=== PATIENT | male | born 1960 | race Caucasian/White ===

== ENCOUNTER 2023-05-30 09:23 | Inpatient (IN) | payer OTHER ==
[2023-05-30 10:13] LABS: Absolute Neutrophil Ct (ANC) 12.31 x10^3/uL (1.4-6.9); BASOPHIL % 0.1 % (0.0-0.4); Basophil (Absolute #) 0.02 x10^3/uL (0-0.4); Eosinophil (Absolute #) 0 x10^3/uL (0-0.5); Hematocrit 36.8 % (42-50); Hemoglobin 12.6 g/dL (12.5-18.0); IMMATURE GRAN # 0.06 x10^3u/L (0.00-0.03); IMMATURE GRAN % 0.4 % (0.00-0.4); Lymphocyte (Absolute #) 0.39 x10^3/uL (1.0-4.6); Lymphocytes % 2.8 % (24.0-44.0); Mean Cell Volume 90.9 fL (78-100); Mean Corpuscular Hemoglobin 31.1 pg (26-32); Mean Corpuscular Hgb Concent. 34.2 g/dL (32-36); Mean Platelet Volume 9.7 fL (7.5-11.0); Monocyte (Absolute #) 0.98 x10^3/uL (0.0-1.3); Monocytes % 7.1 % (0.0-12.0); Neutrophil % 89.6 % (36.0-66.0); Platelet Count 159 x10^3/uL (150-450); Red Blood Count 4.05 x10^6/uL (4.1-5.6); Red Cell Distribution Width 13.9 % (11.5-14.0); White Blood Count 13.8 x10^3/uL (4.0-10.5)
--- NOTE | 2023-05-30 10:18 | ERPHSYRPT ---
- History of Present Illness Time Seen by Provider: 05/30/23 09:41 Source: patient Exam Limitations: no limitations Patient Subjective Stated Complaint: Caregiver states "He was his normal self on but he has been getting worse since. Today he was confused and had a high fever." Triage Nursing Assessment: PT presented alert adn oriented X 4. pt has iv in right forearm. Pt is a quadraplegic. Pt able to speak in clear full sentences. Physician History: Patient here with sepsis criteria. Fever, tachycardia, source of infection likely UTI. Patient has not been himself over the past few days. Has had a f ever for the past 3 days. Temperature was 101 in the ambulance. He has no falls or trauma. Patient is a paraplegic but does have at home care. Initially patient had some altered mental status per the manager night. However he has not received 1 L of fluid in the ambulance. And looks much improved. Allergies/Adverse Reactions: No Known Drug Allergies Allergy (Verified 05/30/23 09:34) Home Medications: Baclofen 20 mg PO TID 05/30/23 [History] Bisacodyl 10 mg [Dulcolax 10 MG SUPP] 10 mg RC DAILY 05/30/23 [History] Cholecalciferol (Vitamin D3) [Vitamin D] 2,000 unit PO DAILY 05/30/23 [History] Docusate Sodium 100 mg [Docusate Sodium 100 MG] 100 mg PO TID 05/30/23 [History] Duloxetine HCl [Cymbalta] 60 mg PO DAILY 05/30/23 [History] Famotidine 20 mg PO DAILY 05/30/23 [History] Gabapentin 400 mg PO TID 05/30/23 [History] Methenamine Hippurate [Hiprex] 1 gm PO BID 05/30/23 [History] Midodrine HCl 5 mg PO TID PRN 05/30/23 [History] Oxybutynin Chloride [Oxybutynin Chloride ER] 10 mg PO DAILY 05/30/23 [History] Polyethylene Glycol [Polyox Wsr-301] 1 gm MC DAILY PRN 05/30/23 [History] Senna 8.6 mg [Senokot 8.6 mg] 8.6 mg PO DAILY 05/30/23 [History] Trazodone HCl 50 mg [Desyrel 50 mg] 50 mg PO CLARIFY 05/30/23 [History] Hx Tetanus, Diphtheria Vaccination/Date Given: Yes Hx Influenza Vaccination/Date Given: Yes Hx Pneumococcal Vaccination/Date Given: Yes Immunizations Up to Date: Yes Travel Risk - International Travel Have you traveled outside of the country in past 3 weeks: No - Emerging Infectious Disease Are you exhibiting symptoms associated with any current EIDs: Yes Symptoms: Fever - Review of Systems All Other Systems: Unable due to condition (Altered mental status) - Past Medical History Pertinent Past Medical History: Yes Neurological History: No Pertinent History ENT History: No Pertinent History Cardiac History: No Pertinent History Respiratory History: No Pertinent History Endocrine Medical History: No Pertinent History Musculoskeletal History: No Pertinent History GI Medical History: No Pertinent History History: No Pertinent History Psycho-Social History: No Pertinent History Other Medical History: paraplegic - Past Surgical History Past Surgical History: Yes Other Surgical History: spine - Social History Smoking Status: Current every day smoker How long have you smoked: years Exposure to second hand smoke: Yes Drug Use: none - Nursing Vital Signs Nursing Vital Signs: Initial Vital Signs Temperature 101.7 F 05/30/23 09:24 Pulse Rate 119 H 05/30/23 09:24 Respiratory Rate 22 05/30/23 09:24 Blood Pressure 108/73 05/30/23 09:24 O2 Sat by Pulse Oximetry 92 L 05/30/23 09:24 Pain Scale Pain Intensity 0 - Physical Exam SpO2 Interpretation: normal SpO2: 92 Comments: 05/30/23 10:17 Physical Exam Vitals signs and nursing note reviewed. Constitutional: Appearance: Appears unwell, febrile, tachycardic HENT: Head: Normocephalic and atraumatic. Eyes: Conjunctiva/sclera: Conjunctivae normal. Neck: Trachea: No tracheal deviation. Cardiovascular: Rate and Rhythm: Tachycardia, hypotension Pulmonary: Effort: Pulmonary effort is normal. No respiratory distress. Abdominal: Palpations: Abdomen is soft. Musculoskeletal: General: No deformity. Skin: General: Skin is warm and dry. Neurological: Mental Status: Patient is alert, speaking full sentences. Patient is a paraplegic, neuroexam in line with this - Course Nursing assessment & vital signs reviewed: Yes EKG Interpreted by Me: Sinus Rhythm (Sinus rhythm, rate of 114, VT interval 162, QRS 85, QTc is 414) Ordered Tests: Active Orders 24 hr Category Date Time Status Admit as Inpatient ROUTINE Care 05/30/23 11:15 Active Call Admit Doctor for Orders ON ADMISSION Care 05/30/23 11:15 Active Code Status Order ROUTINE Care 05/30/23 11:15 Active IV Insertion STAT Care 05/30/23 09:37 Active cath [Cath for Specimen-Straight] STAT Care 05/30/23 09:39 Active House Regular Diet Diet 05/31/23 Breakfast Active CHEST 1 VIEW (PORTABLE) Stat Exams 05/30/23 09:41 Completed BLOOD CULTURE Stat Lab 05/30/23 09:59 Received BLOOD CULTURE Stat Lab 05/30/23 10:05 Received CBC W DIFF Stat Lab 05/30/23 09:40 Completed CMP Stat Lab 05/30/23 09:40 Completed CULTURE,URINE Stat Lab 05/30/23 09:52 Received Lactic Acid Stat Lab 05/30/23 09:55 Completed PROCALCITONIN Stat Lab 05/30/23 09:40 Completed PROTIME WITH INR Stat Lab 05/30/23 09:59 Completed TROPONIN Q4H Lab 05/30/23 09:59 Completed TROPONIN Q4H Lab 05/30/23 13:45 Ordered TROPONIN Q4H Lab 05/30/23 17:45 Ordered TROPONIN Q4H Lab 05/30/23 21:45 Ordered UA W/RFX UR CULTURE Stat Lab 05/30/23 09:52 Completed Pulse Oximetry CONTINUOUS RT 05/30/23 11:16 Active Respiratory Therapy Consult ONCE RT 05/30/23 11:15 Active Medication Summary Generic Name Dose Route Start Last Admin Trade Name Freq PRN Reason Stop Dose Admin Vancomycin HCl 2 gm in 400 mls @ 133.333 mls/hr 05/30/23 09:54 05/30/23 10:53 Vancomycin 2 Gram/400 Ml Bag IV 05/30/23 12:53 133.333 ml/hr STAT ONE 133.33 mls/hr Administration Discontinued Medications Generic Name Dose Route Start Last Admin Trade Name Freq PRN Reason Stop Dose Admin Acetaminophen 1,000 mg 05/30/23 09:55 05/30/23 10:22 Acetaminophen 500 Mg Tablet PO 05/30/23 09:56 1,000 mg STAT STA Administration Acetaminophen Confirm 05/30/23 10:19 Acetaminophen 500 Mg Tablet Administered 05/30/23 10:20 Dose 1,000 mg .ROUTE .STK-MED ONE Sodium Chloride 1,000 mls @ 999 mls/hr 05/30/23 09:53 05/30/23 10:24 Sodium Chloride 0.9% 1000 Ml IV 05/30/23 10:53 999 mls/hr .Q1H1M STA Administration Piperacillin Sod/Tazobactam 100 mls @ 200 mls/hr 05/30/23 09:53 05/30/23 10:24 Sod 4.5 gm/ Sodium Chloride IV 05/30/23 10:22 200 mls/hr STAT ONE Administration Vancomycin HCl Confirm 05/30/23 10:19 Vancomycin 2 Gram/400 Ml Bag Administered 05/30/23 10:20 Dose 2 gm in 400 mls @ ud IV .STK-MED ONE Sodium Chloride Confirm 05/30/23 10:19 Sodium Chloride 0.9% 1000 Ml Administered 05/30/23 10:20 Dose 1,000 mls @ ud .ROUTE .STK-MED ONE Sodium Chloride Confirm 05/30/23 10:20 Sodium Chloride 100ml Mini-Bag Plus Administered 05/30/23 10:21 Dose 100 mls @ ud IV .STK-MED ONE Ibuprofen 600 mg 05/30/23 09:55 05/30/23 10:21 Ibuprofen 600 Mg Tablet PO 05/30/23 09:56 600 mg STAT ONE Administration Ibuprofen Confirm 05/30/23 10:19 Ibuprofen 600 Mg Tablet Administered 05/30/23 10:20 Dose 600 mg .ROUTE .STK-MED ONE Piperacillin Sod/Tazobactam Sod Confirm 05/30/23 10:19 Piperacillin/Tazobactam Sodium 4.5 Gm Vial Administered 05/30/23 10:20 Dose 4.5 gm IV .STK-MED ONE Lab/Rad Data: Laboratory Result Diagrams 05/30/23 09:40 05/30/23 09:40 Laboratory Results 05/30/23 05/30/23 05/30/23 Range/Units 10:09 09:59 09:59 WBC (4.0-10.5) x10^3/uL RBC (4.1-5.6) x10^6/uL Hgb (12.5-18.0) g/dL Hct (42-50) % MCV (78-100) fL MCH (26-32) pg MCHC (32-36) g/dL RDW (11.5-14.0) % Plt Count (150-450) x10^3/uL MPV (7.5-11.0) fL Gran % (36.0-66.0) % Immature Gran % (Auto) (0.00-0.4) % Nucleat RBC Rel Count (0.00-0.1) % Eos # (Auto) (0-0.5) x10^3/uL Immature Gran # (Auto) (0.00-0.03) x10^3u/L Absolute Lymphs (auto) (1.0-4.6) x10^3/uL Absolute Monos (auto) (0.0-1.3) x10^3/uL Absolute Nucleated RBC (0.00-0.01) x10^3u/L Lymphocytes % (24.0-44.0) % Monocytes % (0.0-12.0) % Eosinophils % (0.00-5.0) % Basophils % (0.0-0.4) % Absolute Granulocytes (1.4-6.9) x10^3/uL Basophils # (0-0.4) x10^3/uL PT 12.0 (9.4-12.5) SECONDS INR 1.11 (0.8-3.0) Sodium (135-145) mmol/L Potassium (3.5-5.1) mmol/L Chloride (98-107) mmol/L Carbon Dioxide (22-30) mmol/L Anion Gap (5-15) MEQ/L BUN (9-20) mg/dL Creatinine (0.66-1.25) mg/dL Estimated GFR ML/MIN Glucose (74-106) mg/dL Lactic Acid (0.4-2.0) Calcium (8.4-10.2) mg/dL Total Bilirubin (0.2-1.3) mg/dL AST (17-59) U/L ALT (0-50) U/L Alkaline Phosphatase (38-126) U/L Troponin I < 0.012 (0.000-0.033) ng/mL Serum Total Protein (6.3-8.2) g/dL Albumin (3.5-5.0) g/dL Procalcitonin (0.030-0.080) ng/mL Urine Color (Yellow) Urine Appearance (Clear) Urine pH (4.6-8.0) Ur Specific [place] (1.005-1.030) Urine Protein (Negative) Urine Glucose (UA) (Negative) mg/dL Urine Ketones (Negative) Urine Blood (Negative) Urine Nitrite (Negative) Urine Bilirubin (Negative) Urine Urobilinogen (0.2) mg/dL Ur Leukocyte Esterase (Negative) U Hyaline Cast (Auto) (0-2) /LPF Urine Microscopic RBC (0-5) /HPF Urine Microscopic WBC (0-5) /HPF Ur Epithelial Cells (None Seen) /HPF Urine Bacteria (None Seen) /HPF Urine Culture Reflexed (NO) Influenza Type A Ag NEGATIVE (NEGATIVE) Influenza Type B Ag NEGATIVE (NEGATIVE) RSV (PCR) NEGATIVE (NEGATIVE) SARS-CoV-2 (PCR) NEGATIVE (NEGATIVE) 05/30/23 05/30/23 05/30/23 Range/Units 09:55 09:52 09:40 WBC (4.0-10.5) x10^3/uL RBC (4.1-5.6) x10^6/uL Hgb (12.5-18.0) g/dL Hct (42-50) % MCV (78-100) fL MCH (26-32) pg MCHC (32-36) g/dL RDW (11.5-14.0) % Plt Count (150-450) x10^3/uL MPV (7.5-11.0) fL Gran % (36.0-66.0) % Immature Gran % (Auto) (0.00-0.4) % Nucleat RBC Rel Count (0.00-0.1) % Eos # (Auto) (0-0.5) x10^3/uL Immature Gran # (Auto) (0.00-0.03) x10^3u/L Absolute Lymphs (auto) (1.0-4.6) x10^3/uL Absolute Monos (auto) (0.0-1.3) x10^3/uL Absolute Nucleated RBC (0.00-0.01) x10^3u/L Lymphocytes % (24.0-44.0) % Monocytes % (0.0-12.0) % Eosinophils % (0.00-5.0) % Basophils % (0.0-0.4) % Absolute Granulocytes (1.4-6.9) x10^3/uL Basophils # (0-0.4) x10^3/uL PT (9.4-12.5) SECONDS INR (0.8-3.0) Sodium 128 L (135-145) mmol/L Potassium 3.2 L (3.5-5.1) mmol/L Chloride 97 L (98-107) mmol/L Carbon Dioxide 25 (22-30) mmol/L Anion Gap 9.6 (5-15) MEQ/L BUN 18 (9-20) mg/dL Creatinine 0.64 L (0.66-1.25) mg/dL Estimated GFR 107.7 ML/MIN Glucose 90 (74-106) mg/dL Lactic Acid 0.7 (0.4-2.0) Calcium 8.6 (8.4-10.2) mg/dL Total Bilirubin 0.50 (0.2-1.3) mg/dL AST 64 H (17-59) U/L ALT 83 H (0-50) U/L Alkaline Phosphatase 78 (38-126) U/L Troponin I (0.000-0.033) ng/mL Serum Total Protein 6.1 L (6.3-8.2) g/dL Albumin 3.2 L (3.5-5.0) g/dL Procalcitonin 5.610 H* (0.030-0.080) ng/mL Urine Color Yellow (Yellow) Urine Appearance Turbid A (Clear) Urine pH 6.5 (4.6-8.0) Ur Specific [place] 1.020 (1.005-1.030) Urine Protein 100 A (Negative) Urine Glucose (UA) Negative (Negative) mg/dL Urine Ketones Trace A (Negative) Urine Blood Moderate A (Negative) Urine Nitrite Positive A (Negative) Urine Bilirubin Negative (Negative) Urine Urobilinogen 1.0 A (0.2) mg/dL Ur Leukocyte Esterase Large A (Negative) U Hyaline Cast (Auto) 11-20 (0-2) /LPF Urine Microscopic RBC 21-50 A (0-5) /HPF Urine Microscopic WBC >100 A (0-5) /HPF Ur Epithelial Cells None Seen (None Seen) /HPF Urine Bacteria Many A (None Seen) /HPF Urine Culture Reflexed ORDERED SEPARATELY (NO) Influenza Type A Ag (NEGATIVE) Influenza Type B Ag (NEGATIVE) RSV (PCR) (NEGATIVE) SARS-CoV-2 (PCR) (NEGATIVE) 05/30/23 Range/Units 09:40 WBC 13.8 H (4.0-10.5) x10^3/uL RBC 4.05 L (4.1-5.6) x10^6/uL Hgb 12.6 (12.5-18.0) g/dL Hct 36.8 L (42-50) % MCV 90.9 (78-100) fL MCH 31.1 (26-32) pg MCHC 34.2 (32-36) g/dL RDW 13.9 (11.5-14.0) % Plt Count 159 (150-450) x10^3/uL MPV 9.7 (7.5-11.0) fL Gran % 89.6 H (36.0-66.0) % Immature Gran % (Auto) 0.4 (0.00-0.4) % Nucleat RBC Rel Count 0.0 (0.00-0.1) % Eos # (Auto) 0 (0-0.5) x10^3/uL Immature Gran # (Auto) 0.06 H (0.00-0.03) x10^3u/L Absolute Lymphs (auto) 0.39 L (1.0-4.6) x10^3/uL Absolute Monos (auto) 0.98 (0.0-1.3) x10^3/uL Absolute Nucleated RBC 0.00 (0.00-0.01) x10^3u/L Lymphocytes % 2.8 L (24.0-44.0) % Monocytes % 7.1 (0.0-12.0) % Eosinophils % 0.0 (0.00-5.0) % Basophils % 0.1 (0.0-0.4) % Absolute Granulocytes 12.31 H (1.4-6.9) x10^3/uL Basophils # 0.02 (0-0.4) x10^3/uL PT (9.4-12.5) SECONDS INR (0.8-3.0) Sodium (135-145) mmol/L Potassium (3.5-5.1) mmol/L Chloride (98-107) mmol/L Carbon Dioxide (22-30) mmol/L Anion Gap (5-15) MEQ/L BUN (9-20) mg/dL Creatinine (0.66-1.25) mg/dL Estimated GFR ML/MIN Glucose (74-106) mg/dL Lactic Acid (0.4-2.0) Calcium (8.4-10.2) mg/dL Total Bilirubin (0.2-1.3) mg/dL AST (17-59) U/L ALT (0-50) U/L Alkaline Phosphatase (38-126) U/L Troponin I (0.000-0.033) ng/mL Serum Total Protein (6.3-8.2) g/dL Albumin (3.5-5.0) g/dL Procalcitonin (0.030-0.080) ng/mL Urine Color (Yellow) Urine Appearance (Clear) Urine pH (4.6-8.0) Ur Specific [place] (1.005-1.030) Urine Protein (Negative) Urine Glucose (UA) (Negative) mg/dL Urine Ketones (Negative) Urine Blood (Negative) Urine Nitrite (Negative) Urine Bilirubin (Negative) Urine Urobilinogen (0.2) mg/dL Ur Leukocyte Esterase (Negative) U Hyaline Cast (Auto) (0-2) /LPF Urine Microscopic RBC (0-5) /HPF Urine Microscopic WBC (0-5) /HPF Ur Epithelial Cells (None Seen) /HPF Urine Bacteria (None Seen) /HPF Urine Culture Reflexed (NO) Influenza Type A Ag (NEGATIVE) Influenza Type B Ag (NEGATIVE) RSV (PCR) (NEGATIVE) SARS-CoV-2 (PCR) (NEGATIVE) - Progress Progress: improved Progress Note: 05/30/23 10:19 Patient here with meeting sepsis criteria. He is tachycardic, hypotensive, febrile. Will start fluids, broad-spectrum antibiotics, patient was cath urine. This did appear purulent, foul-smelling. Most likely the source given his paraplegic status. Will give ibuprofen and Tylenol. Most likely need to be admitted. 05/30/23 11:17 ED critical care statement As staff physician, I have provided critical care. Time: 48 mins Criteria for critical illness: UTI, sepsis causing hypotension requiring aggressive fluid resuscitation Treatment and management provided include: Coordination of management with ETC care team, consultants, and inpatient care team. [id number] assessment of condition and response to therapy. Review and interpretation of emergent diagnostic testing. Medical chart review and completion. Direction and immediate supervision of the following therapy: Critical care was time spent personally by me on the following activities: blood draw for specimens, development of treatment plan with patient or surrogate, discussions with consultants, discussions with primary provider, interpretation of cardiac output measurements, evaluation of patient's response to treatment, examination of patient, obtaining history from patient or surrogate, ordering and performing treatments and interventions, ordering and review of laboratory studies, ordering and review of radiographic studies, pulse oximetry, re-evaluation of patient's condition and review of old charts. This time was independent of all procedures performed. Patient mated to the hospital, I did speak over the phone with Dr. Villarreal. S he did accept the patient for admission. Severino Deleon Counseled pt/family regarding: lab results, diagnosis, need for follow-up, rad results - Departure Departure Disposition: In-patient Admission Clinical Impression: Sepsis, UTI (urinary tract infection), Hypotension Condition: Stable Critical Care Time: Yes Critical Care Time(excluding separately billable procedures): Critical 30-74 mins
[2023-05-30] MEDS ORDERED: VANCOMYCIN 2 GRAM/400 ML BAG 2 GM/400 ML PIGGYBACK IV ONE (10:19)
[2023-05-30] MEDS ORDERED: Sodium Chloride 0.9% 1000 ML 1,000 ML ONE (10:19)
[2023-05-30] MEDS ORDERED: TYLENOL EXTRA STRENGTH 500 MG ONE (10:19)
[2023-05-30] MEDS ORDERED: PIPERACILLIN/TAZOBACTAM IV ONE (10:19)
[2023-05-30] MEDS ORDERED: MOTRIN 600 MG ONE (10:19)
[2023-05-30] MEDS ORDERED: Sodium Chloride 100ML MINI-BAG PLUS 100 ML IV ONE (10:20)
[2023-05-30] MEDS: MOTRIN 600 MG PO ONE (10:21)
[2023-05-30] MEDS: TYLENOL EXTRA STRENGTH 500 MG PO STA (10:22)
[2023-05-30] MEDS: Sodium Chloride 0.9% 1000 ML 1,000 ML IV STA ×2 (10:24→13:03)
[2023-05-30] MEDS: PIPERACILLIN/TAZOBACTAM 4.5 GM in Sodium Chloride 100ML MINI-BAG PLUS 100 ML IV ONE (10:24)
[2023-05-30 10:33] LABS: INR 1.11 (0.8-3.0)
--- NOTE | 2023-05-30 10:45 | XRAY ---
Indication: Fever. Comparison: None Portable chest hyperinflated and clear. Heart and mediastinal structures within normal limits. Bony thorax intact with incompletely visualize cervical thoracic junction fusion hardware. Impression: Nonacute hyperinflated chest.
[2023-05-30 10:50] LABS: ALBUMIN 3.2 g/dL (3.5-5.0); ANION GAP 9.6 MEQ/L (5-15); BILIRUBIN,TOTAL 0.5 mg/dL (0.2-1.3); Calcium 8.6 mg/dL (8.4-10.2); Creatinine 1 0.64 mg/dL (0.66-1.25); EST GLOMERULAR FILTRATION RATE 107.7 ML/MIN; Potassium 3.2 mmol/L (3.5-5.1); Total Protein 6.1 g/dL (6.3-8.2)
[2023-05-30 10:53] LABS: Appearance Turbid (Clear); Bacteria Many /HPF (None Seen); Bilirubin Negative (Negative); Blood Moderate (Negative); Epithelial Cells None Seen /HPF (None Seen); Glucose, Urine Negative (Negative); Ketones Trace (Negative); Leukocyte Esterase Large (Negative); Nitrite Positive (Negative); Ph 6.5 (4.6-8.0); Protein,Urine Dip 100 (Negative); RBC 21-50 /HPF (0-5); WBC >100 /HPF (0-5)
[2023-05-30] MEDS: VANCOMYCIN 2 GRAM/400 ML BAG 2 GM/400 ML PIGGYBACK IV ONE (10:53)
[2023-05-30 10:54] LABS: ADD URINE CULTURE? ORDERED SEPARATELY (NO)
[2023-05-30 10:56] LABS: PROCALCITONIN 5.61 ng/mL (0.030-0.080)
[2023-05-30 10:58] LABS: INFLUENZA A NEGATIVE (NEGATIVE); INFLUENZA B NEGATIVE (NEGATIVE); RESPIRATORY SYNCTIAL VIRUS NEGATIVE (NEGATIVE); SARS-CoV-2 Xpert Express NEGATIVE (NEGATIVE)
[2023-05-30 11:35] LABS: Slide Review 1 YES
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
[2023-05-30] MEDS ORDERED: Zofran 4 MG/2 ML VIAL IV PRN (13:35)
[2023-05-30] MEDS ORDERED: PROAMATINE PO PRN (13:40)
[2023-05-30] MEDS ORDERED: MEDICATION INTERVENTION MC SCH (14:30)
[2023-05-30] MEDS: Sodium Chloride 0.9% 1000 ML 1,000 ML IV SCH (14:33)
[2023-05-30] MEDS ORDERED: NON-FORMULARY ITEM (Baclofen [Baclofen] 20 MG Tablet) PO SCH (15:00)
[2023-05-30] MEDS: Nicoderm CQ 21 MG TOP SCH (15:39)
[2023-05-30] MEDS: LIORESAL 10 MG PO SCH (15:40)
[2023-05-30] MEDS: Neurontin PO SCH (15:40)
[2023-05-30] MEDS: Klor Con PO SCH (15:40)
[2023-05-30] MEDS: PIPERACILLIN/TAZOBACTAM 4.5 GM in Dextrose 5%/Water IV Soln. 100ML PLUS BAG 100 ML IV SCH (18:04)
[2023-05-30] MEDS: VANCOMYCIN 1 GRAM/200 ML BAG 1 GM/200 ML PIGGYBACK IV SCH (20:59)
[2023-05-30] MEDS: DESYREL 50 MG PO SCH (21:13)
[2023-05-30] MEDS ORDERED: METHENAMINE HIPPURATE 1 GM PO SCH (22:00)
[2023-05-31] MEDS: Lactated Ringers 1,000 ML IV SCH (04:21)
[2023-05-31 05:31] LABS: Absolute Neutrophil Ct (ANC) 9.76 x10^3/uL (1.4-6.9); BASOPHIL % 0.1 % (0.0-0.4); Basophil (Absolute #) 0.01 x10^3/uL (0-0.4); Eosinophil (Absolute #) 0 x10^3/uL (0-0.5); Hematocrit 40.3 % (42-50); Hemoglobin 13.1 g/dL (12.5-18.0); IMMATURE GRAN # 0.03 x10^3u/L (0.00-0.03); IMMATURE GRAN % 0.3 % (0.00-0.4); Lymphocytes % 3.7 % (24.0-44.0); Mean Corpuscular Hemoglobin 30.9 pg (26-32); Mean Corpuscular Hgb Concent. 32.5 g/dL (32-36); Mean Platelet Volume 9.8 fL (7.5-11.0); Monocyte (Absolute #) 0.65 x10^3/uL (0.0-1.3); Neutrophil % 89.9 % (36.0-66.0); Platelet Count 146 x10^3/uL (150-450); Red Blood Count 4.24 x10^6/uL (4.1-5.6); Red Cell Distribution Width 14.4 % (11.5-14.0); White Blood Count 10.9 x10^3/uL (4.0-10.5)
[2023-05-31 05:46] LABS: ALBUMIN 2.8 g/dL (3.5-5.0); ANION GAP 10.1 MEQ/L (5-15); BILIRUBIN,TOTAL 0.5 mg/dL (0.2-1.3); Calcium 8.9 mg/dL (8.4-10.2); Creatinine 1 0.53 mg/dL (0.66-1.25); MAGNESIUM 1.6 mg/dL (1.6-2.3); Potassium 4.2 mmol/L (3.5-5.1); Total Protein 5.7 g/dL (6.3-8.2)
[2023-05-31 07:12] LABS: Slide Review 1 YES
[2023-05-31] MEDS ORDERED: NON-FORMULARY ITEM (Oxybutynin Chloride [Oxybutynin Chloride Er] 10 MG Tab.Er.24) PO SCH (10:00)
[2023-05-31] MEDS ORDERED: NON-FORMULARY ITEM (Duloxetine Hcl [Cymbalta] 60 MG Capsule.Dr) PO SCH (10:00)
[2023-05-31] MEDS: ENOXAPARIN SODIUM SQ SCH (10:51)
[2023-05-31] MEDS: VITAMIN D PO SCH (10:51)
[2023-05-31] MEDS: Cymbalta 30 MG Capsule PO SCH (10:52)
[2023-05-31] MEDS: Pepcid 20 MG PO SCH (10:53)
[2023-05-31] MEDS: Ditropan XL 5 MG PO SCH (10:53)
[2023-05-31 10:56] LABS: 027 TOX PROD PRESUMPTIVE NEGATIVE (NEGATIVE); TOXIGENIC C. DIFF ORG NEGATIVE (NEGATIVE)
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
[2023-05-31] MEDS: PROAMATINE PO SCH (13:11)
[2023-05-31] MEDS: TYLENOL 325 MG PO PRN (20:14)
[2023-05-31] MEDS: PHARMACY DOSING REQUEST MC ONE (21:02)
[2023-05-31] MEDS: PHARMACY DOSING REQUIRED: VANCOMYCIN IV STA (21:02)
[2023-06-01 05:30] LABS: Absolute Neutrophil Ct (ANC) 5.96 x10^3/uL (1.4-6.9); BASOPHIL % 0.3 % (0.0-0.4); Basophil (Absolute #) 0.02 x10^3/uL (0-0.4); Eosinophil % 0.1 % (0.00-5.0); Eosinophil (Absolute #) 0.01 x10^3/uL (0-0.5); Hematocrit 35.1 % (42-50); Hemoglobin 11.9 g/dL (12.5-18.0); IMMATURE GRAN # 0.03 x10^3u/L (0.00-0.03); IMMATURE GRAN % 0.4 % (0.00-0.4); Lymphocyte (Absolute #) 0.76 x10^3/uL (1.0-4.6); Lymphocytes % 9.9 % (24.0-44.0); Mean Cell Volume 90.9 fL (78-100); Mean Corpuscular Hemoglobin 30.8 pg (26-32); Mean Corpuscular Hgb Concent. 33.9 g/dL (32-36); Mean Platelet Volume 10.5 fL (7.5-11.0); Monocyte (Absolute #) 0.92 x10^3/uL (0.0-1.3); Monocytes % 11.9 % (0.0-12.0); Neutrophil % 77.4 % (36.0-66.0); Platelet Count 157 x10^3/uL (150-450); Red Blood Count 3.86 x10^6/uL (4.1-5.6); Red Cell Distribution Width 14.5 % (11.5-14.0); White Blood Count 7.7 x10^3/uL (4.0-10.5)
[2023-06-01 06:23] LABS: ALBUMIN 2.7 g/dL (3.5-5.0); ANION GAP 11.6 MEQ/L (5-15); BILIRUBIN,TOTAL 0.5 mg/dL (0.2-1.3); Calcium 8.5 mg/dL (8.4-10.2); Creatinine 1 0.5 mg/dL (0.66-1.25); Total Protein 5.6 g/dL (6.3-8.2)
[2023-06-01 06:46] LABS: Potassium 2.7 mmol/L (3.5-5.1)
[2023-06-01] MEDS ORDERED: Klor Con PO ONE ×2 (07:00→11:00)
[2023-06-01] MEDS: Klor Con PO ONE ×2 (07:36→11:17)
[2023-06-01] MEDS ORDERED: TROUGH DRUG LEVELS IJ ONE (09:30)
[2023-06-01] MEDS: Sodium Bicarbonate 50 MEQ/50 ML VIAL*** 150 MEQ in Dextrose 5%/Water IV Soln. 1000 ML 1... IV SCH (09:53)
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
[2023-06-01 12:08] VITALS: BP 134/78; PULSE 73; RESP 20; TEMP 99; O2SAT 93
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
== END 2023-06-01 15:36 | DRG 871 ==
LOC: ED 09:23 → MED SURG 12:27
PROVIDERS: ADMIT Internal Medicine; ATTEND Internal Medicine
DX: A41.9 Sepsis, unspecified organism (principal); G82.50 Quadriplegia, unspecified; N39.0 Urinary tract infection, site not specified; E87.1 Hypo-osmolality and hyponatremia; B96.1 Klebsiella pneumoniae [K. pneumoniae] as the cause of diseases classified elsewhere; I95.9 Hypotension, unspecified; R19.7 Diarrhea, unspecified; F17.200 Nicotine dependence, unspecified, uncomplicated; R41.82 Altered mental status, unspecified; R00.0 Tachycardia, unspecified; D72.829 Elevated white blood cell count, unspecified; E87.6 Hypokalemia; Z79.899 Other long term (current) drug therapy
CPT/HCPCS: 0241U; 36000; 36415; 71045; 80053; 81001; 82947; 83036; 83605; 83735; 84132; 84145; 84484; 85025; 85610; 87040; 87077; 87086; 87186; 87493; 94762; 96360; 96365; 96368; 99285; 99291; J1650; J2543; P9612; Q3014; A9270-GY; J3370